=== PATIENT | male | born 1995 ===

== ENCOUNTER 2023-06-04 16:48 | Outpatient (CLI) | payer OTHER, SELFPAY ==
[2023-06-07 21:25] LABS: H pylori, Urea Breath DETECTED (NOT DETECTED)
== END 2023-06-04 16:49 | disposition home or self-care (01) ==
LOC: ANHLAB 16:51
PROVIDERS: PCP Hospitalist; Visit Provider Nurse Practitioner Family
DX: K92.89 Other specified diseases of the digestive system (principal); R11.0 Nausea
CPT/HCPCS: 83013

== ENCOUNTER 2023-06-19 07:37 | Outpatient (NON) | payer OTHER, SELFPAY | END 2023-06-19 07:38 | disposition home or self-care (01) | LOC: ANHLAB 06-20 07:39 | PROVIDERS: PCP Hospitalist; Visit Provider Internal Medicine Gastroenterology | DX: K92.89 Other specified diseases of the digestive system (principal); R11.0 Nausea | CPT/HCPCS: 88305 ==

== ENCOUNTER 2023-06-19 09:26 | Day surgery (SDC) | payer OTHER, SELFPAY ==
[2023-06-06 14:13] VITALS: BMI 29.7
[2023-06-19 10:45] VITALS: BP 123/77; PULSE 57; RESP 20; TEMP 37.2; O2SAT 98
[2023-06-19] MEDS: LACTATED RINGERS 1,000 ML 150 ML IV CONT (10:52)
--- NOTE | 2023-06-19 10:54 | WPDHPUPDATE1 ---
History and Physical Update Update Date/Time: 06/19/23 10:54 History and Physical has been reviewed, including an updated exam of the patient. There are NO changes in the patient's condition. Risks, benefits, and alternatives have been discussed and questions answered. Patient agrees to proceed with procedure.
--- NOTE | 2023-06-19 11:13 | P.PNAN_ITS ---
Anes - Initial Pre Proc Eval Procedure: Operation Date: 06/19/23 12:00 Proposed Procedures p Esophagogastroduodenoscopy - Marcell Land MD Date/Time: 06/19/23 11:13 Surgeon: Marcell Land MD Pre Op Diagnosis: Nausea, Other Specified Diseases of Digestive Sys. Patient Data Age: 27 Gender: M Height: 1.75 m Weight: 90.2 kg Last Vital Signs Temp 37.2 C 06/19/23 10:45 Pulse 57 L 06/19/23 10:45 Resp 20 06/19/23 10:45 BP 123/77 06/19/23 10:45 Pulse Ox 98 06/19/23 10:45 O2 Del Method Room Air 06/19/23 10:45 Allergies Allergy/AdvReac Type Severity Reaction Status Date / Time Penicillins Allergy Unknown Other Verified 06/19/23 10:43 Home Medications Medication Instructions Recorded Confirmed Type No Home Medications 06/19/23 06/19/23 History Patient hx anesthesia problems: none Family hx anesthesia problems: none Results Review: All pre-operative results and documents have been reviewed as part of the pre- operative evaluation. [facility] Past Medical History Medical History Gas bloat syndrome Nausea Social History Social History Smoking status: Never smoker Alcohol use details: maybe 1/2 glass per week Substance use type: does not use Anes - Eval Final PreProcedure Day of Procedure 06/19/23 11:13 Patient weight: overweight Heart: regular rate and rhythm Lungs: clear to auscultation Airway: Mallampati scale class II Neurological: alert and oriented Last oral intake: >/= 8 hours ASA classification: II Emergent: no Anesthetic plan: proceed Anesthesia type and monitoring: general GIVS and standard monitoring Results Review: All pre-operative results and documents have been reviewed as part of the pre- operative evaluation. Informed Consent: The patient's anesthetic plan and its attendant risks and benefits were discussed with the patient/family/POA. Questions were solicited and answers provided to the satisfaction of the patient/family/POA.
[2023-06-19 11:58] VITALS: BP 101/54; PULSE 74; RESP 14; O2SAT 98
[2023-06-19 12:08] VITALS: BP 103/59; PULSE 72; RESP 16; O2SAT 97
--- NOTE | 2023-06-19 12:15 | WPDANESPN ---
Anes - Prog Note Post-Op Date/Time: 06/19/23 12:15 Cardiovascular status: normal Respiratory status: normal Airway patency: baseline Mental status: baseline Post-Op hydration status: normal Vital Signs: Last Vital Signs Temp 37.2 C 06/19/23 10:45 Pulse 57 L 06/19/23 10:45 Resp 20 06/19/23 10:45 BP 123/77 06/19/23 10:45 Pulse Ox 98 06/19/23 10:45 O2 Del Method Room Air 06/19/23 10:45 Pain Score (VAS): 0 I/O: Intake & Output 06/18/23 06/19/23 06/19/23 23:59 07:59 15:59 Intake Total 200 Balance 200 Patient Feedback: Patient satisfied with anesthetic care.
[2023-06-19 12:18] VITALS: BP 117/53; PULSE 67; RESP 16; O2SAT 97
--- NOTE | 2023-06-19 12:37 | SUR.PHASEII ---
PT AWAKE AND ALERT. GETTING DRESSED. WAITING FOR HIS MOTHER TO ARRIVE TO TAKE PT HOME
--- NOTE | 2023-06-19 12:57 | SUR.PHASEII ---
1256; DR MCFARLAND CONFIRMED H.PYLORI TEST IS POSITIVE. HE SPOKE WITH PT AND HIS MOTHER IN WAITING ROOM
== END 2023-06-19 12:58 | disposition home or self-care (01) ==
PROVIDERS: PCP Hospitalist; Visit Provider Internal Medicine Gastroenterology
PROC: 0DJ08ZZ Inspection of Upper Intestinal Tract, Via Natural or Artificial Opening Endoscopic (ICD-10-PCS; CPT 43235; principal; 2023-06-19 12:00)
DX: R14.3 Flatulence (principal); R14.2 Eructation; R14.0 Abdominal distension (gaseous)
CPT/HCPCS: 43239

== ENCOUNTER 2023-08-09 13:37 | Outpatient (CLI) | payer OTHER, SELFPAY ==
[2023-08-14 17:29] LABS: H pylori, Urea Breath NOT DETECTED (NOT DETECTED)
== END 2023-08-09 13:38 | disposition home or self-care (01) ==
LOC: ANHLAB 13:38
PROVIDERS: PCP Hospitalist; Visit Provider Nurse Practitioner Family
DX: A04.8 Other specified bacterial intestinal infections (principal)
CPT/HCPCS: 83013